=== PATIENT | male | born 1970 | race Two or more races ===

== ENCOUNTER 2020-11-29 13:34 | Outpatient (REF) | payer BC, SELFPAY ==
--- NOTE | ~2020-11-29 | XR_ITS ---
EXAMINATION: XR SHOULDER, RIGHT CLINICAL INFORMATION: Shoulder pain. COMPARISON: None TECHNIQUE: Four views of the right shoulder. FINDINGS: [id number] glenohumeral joint arthritis. Mild AC joint arthritis. No fracture or dislocation. No abnormal soft tissue calcification. XR/XR shoulder RT min 2V IMPRESSION: [id number] glenohumeral joint arthritis. Mild AC joint arthritis.
== END 2020-11-29 13:35 | disposition home or self-care (01) ==
LOC: HO.HMGCX 13:34
PROVIDERS: PCP Internal Medicine; Visit Provider Internal Medicine
DX: Z00.00 Encounter for general adult medical examination without abnormal findings (principal); M67.911 Unspecified disorder of synovium and tendon, right shoulder; E66.9 Obesity, unspecified; E78.5 Hyperlipidemia, unspecified
CPT/HCPCS: 73030

== ENCOUNTER → 2020-12-11 13:53 | Outpatient (BNVA) | payer BC, SELFPAY | PROVIDERS: PCP Internal Medicine; Visit Provider Orthopaedic Surgery | DX: M75.41 Impingement syndrome of right shoulder (principal) | CPT/HCPCS: 20610; J1040 ==

== ENCOUNTER 2022-02-11 15:42 | Outpatient (REF) | payer BC, SELFPAY ==
--- NOTE | ~2022-02-11 | XR_ITS ---
EXAMINATION: XR CHEST CLINICAL INFORMATION: R05.9 - Cough, unspecified COMPARISON: Chest radiograph 09/10/2017 TECHNIQUE: 2 views of the chest were obtained. FINDINGS: There is subtle groundglass attenuation left mid to lower zone suspicious for early infiltrate. There is no confluent lobar or segmental airspace consolidation or effusion. The heart is normal in size. The hilar and mediastinal contours and bony structures are unremarkable. XR/XR chest 2V IMPRESSION: Suspect early infiltrate left mid and lower zone. No effusion.
[2022-02-12 12:37] LABS: Influenza A PCR NEGATIVE (Negative); Influenza B PCR NEGATIVE (Negative); Resp Syncy Virus RNA Qual PCR NEGATIVE (Negative); SARS COV2 PCR INHOUSE NEGATIVE (Negative)
== END 2022-02-11 15:43 | disposition home or self-care (01) ==
LOC: HO.XRAY 15:42
PROVIDERS: PCP Internal Medicine; Visit Provider Family Medicine
DX: Z20.822 Contact with and (suspected) exposure to COVID-19 (principal); R05.9 Cough, unspecified; R09.89 Other specified symptoms and signs involving the circulatory and respiratory systems; B34.9 Viral infection, unspecified
CPT/HCPCS: 0241U; 71046

== ENCOUNTER 2022-06-18 16:49 | Outpatient (REF) | payer BC, SELFPAY ==
[2022-06-18 17:09] LABS: MANUAL DIFF FLAG NO
[2022-06-18 17:55] LABS: Basophils Absolute Auto 0.1 X10*3/uL (0.0-0.2); Basophils Percent Auto 0.4 % (0-2); Eosinophils Absolute Auto 0.2 X10*3/uL (0.0-0.4); Eosinophils Percent Auto 1.5 % (0-4); Imm Gran Abs Auto 0.08 X10*3/uL (0.00-0.03); Imm Gran Pct Auto 0.5 % (0.0-0.4); Lymphocytes Absolute Auto 4.7 X10*3/uL (1.2-4.9); Lymphocytes Percent Auto 29.2 % (20-40); Mean Corpuscular HGB Conc 32.6 g/dl (31.0-36.0); Mean Corpuscular Hemoglobin 28.5 pg (27.0-33.0); Mean Corpuscular Volume 87.4 fL (80.0-98.0); Mean Platelet Volume 11.6 fL (9.4-12.4); Monocytes Absolute Auto 1.3 X10*3/uL (0.1-1.2); Monocytes Percent Auto 7.8 % (2-11); Neutrophils Absolute Auto 9.7 x10*3/uL (2.0-8.3); Neutrophils Percent Auto 60.6 % (45-73); Platelet Count 288 X10*3/uL (160-400); Red Blood Count 4.92 X10*6/uL (4.60-5.80); Red Cell Distribution Width 12.9 % (11.0-16.0)
[2022-06-18 18:21] LABS: Alanine Aminotransferase 51 U/L (0-40); Albumin Level 4.3 g/dL (3.5-5.0); Alkaline Phosphatase 86 U/L (39-117); Anion Gap 15 (12-20); Aspartate Amino Transferase 34 U/L (5-37); Bilirubin Total 0.3 mg/dL (0.0-1.0); Blood Urea Nitrogen 19 mg/dL (9-16); Calcium 9.6 mg/dL (8.4-10.2); Carbon Dioxide 24 mmol/L (22-29); Chloride 107 mmol/L (96-108); Estimated Glomerular Filt Rate 57; Glucose Random 89 mg/dL (60-115); Sodium 142 mmol/L (135-145); Total Protein 7.5 g/dL (6.5-8.0)
== END 2022-06-18 16:50 | disposition home or self-care (01) ==
LOC: HO.LAB 16:49
PROVIDERS: PCP Internal Medicine; Visit Provider Nurse Practitioner
DX: Z01.818 Encounter for other preprocedural examination (principal)
CPT/HCPCS: 36415; 80053; 85025

== ENCOUNTER 2022-11-28 08:01 | Day surgery (SDC) | payer BC, SELFPAY ==
--- NOTE | 2022-11-28 08:20 | HO.ANESPROP2 ---
HPI - Anesthesia Eval Consult details Narrative: 52 yr old male obese , smoker for colon screen PMFSH Active Problems Active Problems: All Active Problems (Updated 06/18/22 @ 17:01 by JUAN RAMON Pepper) Morbid obesity (Acute) Pre-op examination (Acute) Coughing up blood (Acute) Abnormal lung sounds (Acute) Cough (Acute) Viral illness (Acute) Rotator cuff impingement syndrome of right shoulder (Acute) Annual physical exam (Acute) Obesity (Acute) Hyperlipidemia (Acute) Tendinopathy of right shoulder (Acute) Watering of eye (Acute) Past Medical History Medical History Annual physical exam CVA (cerebral vascular accident) Hyperlipidemia Obesity Tendinopathy of right shoulder Watering of eye Family History Family History Father No problems noted. Mother HTN (hypertension) Family history of problems with anesthesia: No Surgical History Surgical History History of appendectomy History of Problems with Anesthesia: No Social History Social History Housing: Apartment Alcohol intake: current Alcohol intake frequency: a few times a month Patient Tobacco Use Status: Current everyday Tobacco user Tobacco use type: Cigarette Cigarettes Per Day: 5 e-Cigarette/Vaping Use: Never Used Advance Directives: No Advance Directives Information Provided: Yes Current occupational status: employed Cognitive needs: No Hearing needs: No Vision needs: No Meds Allergies Allergy/AdvReac Type Severity Reaction Status Date / Time No Known Allergies Allergy Verified 11/26/22 15:46 Exam Exam Date and Time: November 28, 2022 0820 Airway Mallampati Class: II TM Dist: >3cm Neck ROM: Full Heart: rrr Lungs: cta Assessment and Plan Assessment Anesthesia Assessment: Anesthesia Plan Discussed and Chart Reviewed Final Anesthetic Review Family History of Problems with Anesthesia: No History of Problems with Anesthesia: No NPO: Yes ASA Class: III Final Preanesthetic Review: No Changes in Pt Med Stat, Meds/Allgs Chart Reviewed, Consent Obtained/Reviewed and Anes Risks/Benef Reviewed Patient Risk: Intermediate Procedure Risk: Low Anesthetic Plan Anesthetic Plan: MAC: Disposition: Standard PACU
[2022-11-28 08:26] VITALS: BMI 48.5
[2022-11-28 08:47] VITALS: BP 157/86; PULSE 61; RESP 18; TEMP 36.4; O2SAT 97
--- NOTE | 2022-11-28 08:52 | MHC.SHP ---
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 Right shoulder tendinopathy Knee OA) History of Previous Operations: Relevant previous surgery/procedure and date(s) ( status post appendectomy) Allergies: Allergies Allergy/AdvReac Type Severity Reaction Status Date / Time No Known Allergies Allergy Verified 11/26/22 15:46 Review of Systems Sugical H&P ROS: Negative: Constitution, Cardiovascular, Respiratory and Gastrointestinal Exam Surgical H&P Exam: Normal: Heart, Normal: Lungs, Normal: Extremities and Normal: Abdomen Plan Diagnosis/Plan: Unchanged I have reviewed the history and physical and performed a pertinent physical examination on my patient. No changes have occurred unless specified. Time Spent With Patient Time: Total time managing care of this patient today ____ minutes.
--- NOTE | 2022-11-28 09:31 | PM.OP ---
Brief Operative Note Date of Service: 11/28/22 Pre-op diagnosis: Colon cancer screening Post-op diagnosis: other (Colon polyp, diverticulosis, hemorrhoids) Procedure: COLONOSCOPY TILL CECUM WITH BIOPSIES Surgeon: Luis Miguel Novak MD Anesthesia: MAC Was an Geothermal Sheet Metal Worker used for this Procedure?: Yes Geothermal Sheet Metal Worker: Tr Pineda Estimated blood loss (mL): 0 Pathology: other (A. Rectal polyp) Condition: stable Disposition: PACU
[2022-11-28 09:32] VITALS: BP 112/65; PULSE 84; RESP 20; TEMP 37.3; O2SAT 98
--- NOTE | 2022-11-28 09:32 | W.PM.OPN ---
Operative Note Operative Note Date of Service: 11/28/22 Narrative: Pre-op diagnosis: Colon cancer screening Post-op diagnosis:?other (Colon polyp, diverticulosis, hemorrhoids) Surgeon: Luis Miguel Novak MD Anesthesia:?MAC COLONOSCOPY TILL CECUM WITH BIOPSIES Consent: Indications for the procedure and potential complications of bleeding, perforation, reaction to medications and missed diagnosis were discussed with the patient and informed consent was obtained. Instrument: Olympus PCF H 190 L variable stiffness pediatric colonoscope Monitoring: Vital signs and clinical assessment, intermittent blood pressure monitoring, continuous EKG monitoring, Pulse oximetry and Carbon Dioxide monitoring were done throughout the procedure. Colon withdrawl time was 15 minutes. Procedure: The patient was placed in the left lateral decubitis position and pre-procedure medications were administered. After a digital rectal examination of the ano-rectum, the video colonoscope was inserted into the rectum and advanced through the colon to the cecum. The colonoscope was slowly withdrawn in a retrograde panoramic fashion and the colon mucosa was carefully examined including a retroflexed view of the rectum. Findings and interventions are described below. Procedure Difficulty: Without difficulty Findings: Terminal Ileum: Not evaluated Cecum: Normal Ascending Colon: Normal Transverse Colon: Normal Descending Colon: Normal Sigmoid Colon: Moderate diverticulosis Rectum: A 4-5 mm diminutive appearing polyp - removed with a cold bx Ano-rectum: Moderate internal hemorrhoids Colon preparation: Good after some irrigation Impression and Post Procedure Diagnosis: Colonoscopy Findings: One small polyp removed Moderate diverticulosis seen in the sigmoid colon Moderate hemorrhoids on retroflexed exam. Plan: Await pathology results Patient has an appointment on 12/12/22 in the [facility] with Savanah Avery NP. Repeat Colonoscopy interval based on path results - in 5 years if polyps are adenomatous and 10 years if polyps are hyperplastic. Above findings were reviewed with the patient and colon polyps and diverticulosis handouts were given in the discharge area
[2022-11-28 09:47] VITALS: BP 174/86; PULSE 75; RESP 22; TEMP 36.9; O2SAT 97
== END 2022-11-28 10:36 | disposition home or self-care (01) ==
PROVIDERS: PCP Internal Medicine; Visit Provider Internal Medicine Gastroenterology
PROC: 0DJD8ZZ Inspection of Lower Intestinal Tract, Via Natural or Artificial Opening Endoscopic (ICD-10-PCS; CPT 45378; principal; 2022-11-28 09:20)
DX: Z12.11 Encounter for screening for malignant neoplasm of colon (principal); K62.1 Rectal polyp; K57.30 Diverticulosis of large intestine without perforation or abscess without bleeding; K64.8 Other hemorrhoids; I69.920 Aphasia following unspecified cerebrovascular disease; I69.954 Hemiplegia and hemiparesis following unspecified cerebrovascular disease affecting left non-dominant side; E78.00 Pure hypercholesterolemia, unspecified; E66.01 Morbid (severe) obesity due to excess calories; Z68.42 Body mass index [BMI] 45.0-49.9, adult; Z79.82 Long term (current) use of aspirin; Z79.899 Other long term (current) drug therapy; F17.210 Nicotine dependence, cigarettes, uncomplicated
CPT/HCPCS: 45380; 88305

== ENCOUNTER → 2023-01-07 16:03 | Outpatient (BNVA) | payer BC, SELFPAY | PROVIDERS: PCP Internal Medicine; Visit Provider Nurse Practitioner | DX: Z13.89 Encounter for screening for other disorder (principal) ==

== ENCOUNTER 2023-04-13 13:00 | Outpatient (AMB) | payer BC, SELFPAY ==
[2023-04-13 13:03] VITALS: BP 150/82; PULSE 82; O2SAT 97; BMI 49.2
--- NOTE | 2023-04-13 13:03 | MHC.PC.OV ---
Vital Signs 04/13/23 13:03 Height 5 ft 7 in Weight 314 lb BMI 49.2 BP 150/82 H Blood Pressure Location Lt brachial Position Sitting Pulse 82 Pulse Source Pulse Oximeter Pulse Oximetry (%) 97 Oxygen Delivery Method Room Air Intake Visit Reasons: Annual PE Intake Note: Pt is here today for a PE. Allergies No Known Allergies Allergy (Verified 04/13/23 13:03) Medication List - Last Reconciled 04/13/23 by Vanessa Fleming MD aspirin 81 mg PO DAILY atorvastatin 80 mg PO DAILY Tobacco use date assessed: 04/13/23 Dental Screening Dental Screen Date: 04/13/23 Did you have a dental visit in the last 12 months?: No Did you have a dental problem in the last 6 months where you did not have access to dental care?: No Was dental information given to patient?: Patient declined HPI Annual PE HPI Details Pt presents for PE. [facility] Medical History (Updated 04/13/23 @ 13:25 by Vanessa Fleming MD) Annual physical exam CVA (cerebral vascular accident) Hyperlipidemia Obesity Tendinopathy of right shoulder Watering of eye Surgical History (Updated 04/13/23 @ 13:33 by Vanessa Fleming MD) H/O colonoscopy History of appendectomy Family History Father No problems noted. Mother HTN (hypertension) Social History Housing: Apartment Alcohol intake: current Alcohol intake frequency: a few times a month Patient Tobacco Use Status: Current everyday Tobacco user Tobacco use type: Cigarette Cigarettes Per Day: 4 Years Smoked: 35 Packs per year/per ci.00 e-Cigarette/Vaping Use: Never Used Current occupational status: employed Cognitive needs: No Hearing needs: No Vision needs: No Questionnaire PHQ-9 Over the last 2 weeks, how often have you been bothered by any of the following problems? 1. Little interest or pleasure in doing things: several days 2. Feeling down, depressed, or hopeless: nearly every day 3. Trouble falling or staying asleep, or sleeping too much: not at all 4. Feeling tired or having little energy: not at all 5. Poor appetite or overeating: not at all 6. Feeling bad about yourself - or that you are a failure or have let yourself or your family down: not at all 7. Trouble concentrating on things, such as reading the newspaper or watching television: not at all 8. Moving or speaking so slowly that other people could have noticed. Or the opposite - being so fidgety or restless that you have been moving around a lot more than usual: not at all 9. Thoughts that you would be better off or of hurting yourself in some way: not at all Total score: 4 Depression Screening Interpretation: Negative Source: Developed by Drs. Tr Nelson, Martha Larios, Pete Lamb and colleagues, with an educational johnathan from [employer]. Thrive Questionnaire Date Thrive assessed: 04/13/23 I am a: Patient What is your living situation today?: I have a steady place to live Within the past 12 months, did the food you bought not last and you didn't have the money to get more?: Never true Within the past 12 months, did you worry whether your food would run out before you got money to buy more?: Never true Do you have trouble paying for medicines?: No Do you have trouble getting transportation to medical appointments?: No Do you have trouble paying your heating and electricity bill?: No Do you have trouble taking care of your child, family member or friend?: No Do you have trouble with day-to-day activities such as bathing, preparing meals, shopping, managing finances, etc.?: No Are you currently unemployed and looking for a job?: No Are you interested in more education?: No Please select the resources that you would like help with: None Currently or been in a relationship where the following occur: no concerns reported AUDIT C Alcohol Use Questionnaire (AUDIT-C) 1. How often do you have a drink containing alcohol?: 2-4 times a month 2. How many drinks containing alcohol do you have on a typical day when you are drinking?: 5 or 6 3. How often do you have six or more drinks on one occasion?: Never Total Score: 4 ROBINSON-7 AMB Questionnaire ROBINSON-7 Date ROBINSON - 7 assessed: 04/13/23 Feeling nervous, anxious, or on edge: 0 = Not at all Not being able to stop or control worryin = Not at all Worrying too much about different things: 0 = Not at all Trouble relaxin = Not at all Being so restless that it is hard to sit still: 0 = Not at all Becoming easily annoyed or irritable: 0 = Not at all Feeling afraid as if something awful might happen: 0 = Not at all Total ROBINSON-7 score (0-4 normal; 5-9 mild; 10-14 moderate; 15-21 severe): 0 Source: Developed by Drs. Tr Nelson, Martha Larios, Pete Lamb and colleagues, with an educational johnathan from [employer]. Review of Systems Const All systems reviewed & are unremarkable except as noted in HPI and below Reports no additional complaints Eyes Reports no additional complaints ENT Reports no additional complaints Card Reports no additional complaints Resp Reports no additional complaints GI Reports no additional complaints Reports no additional complaints Physical exam (Primary Care) Vital Signs: Last Vital Signs Pulse 82 04/13/23 13:03 BP 150/82 H 04/13/23 13:03 Pulse Ox 97 04/13/23 13:03 Oxygen Delivery Method Room Air 04/13/23 13:03 BMI result Body Mass Index 49.2 Tobacco/Smoking Status: Tobacco use Status Tobacco use date assessed 04/13/23 04/13/23 13:10 Patient Tobacco Use Status Current everyday Tobacco 04/13/23 13:10 Tobacco use type Cigarette 04/13/23 13:10 e-Cigarette/Vaping Use Never Used 04/13/23 13:10 PHQ-9: PHQ-9 Score PHQ-9: Total score 4 04/13/23 13:10 Depression Screening Interpretation: Negative Thrive Assessment: Date of Thrive Assessment Date Thrive assessed 04/13/23 04/13/23 13:10 Currently or been in a relationship where the following occur: no concerns reported Const General: no acute distress HENMT Head: Yes normal to inspection Ears: hearing grossly normal bilaterally Face and sinus: Yes normal facial exam Mouth: Normal oral and palatal mucosa present Throat: Yes posterior oropharynx normal Eyes General: appearance normal, both eyes and all related structures Neck Neck: Yes no lymphadenopathy and Yes supple Resp Effort & Inspection: normal respiratory effort Auscultation: clear to auscultation bilaterally Cardio Rhythm: regular rhythm Heart sounds: S1 normal heart sound present and S2 normal heart sound present GI Inspection: Yes normal to inspection Palpation (GI): Soft to palpation Percussion: Yes normal to percussion Auscultation: normal bowel sounds Assessment and Plan Assessment & Plan (1) H/O colonoscopy: Comment: 11/27, hyperplastic polyp, recheck in 10 years Code(s): Z98.890 - Other specified postprocedural states (2) Blurred vision, bilateral: Code(s): H53.8 - Other visual disturbances (3) HTN (hypertension): Code(s): I10 - Essential (primary) hypertension Plan: Start 20 mg of olmesartan, low sodium diet increase exercise weight loss discussed with patient follow-up in 6 weeks (4) Hyperlipidemia: Code(s): E78.5 - Hyperlipidemia, unspecified Plan: Continue atorvastatin patient will return for fasting labs (5) Annual physical exam: Code(s): Z00.00 - Encounter for general adult medical examination without abnormal findings Plan: Well-balanced diet regular exercise weight loss discussed with patient (6) Obesity: Code(s): E66.9 - Obesity, unspecified Orders: Orders Lipid Panel Today E78.5 - Hyperlipidemia, unspecified, I10 - Essential (primary) hypertension, Z00.00 - Encounter for general adult medical examination without abnormal findings PSA,Total (Free>4and<10) Today E78.5 - Hyperlipidemia, unspecified, I10 - Essential (primary) hypertension, Z00.00 - Encounter for general adult medical examination without abnormal findings Referrals Ophthalmology Referral H53.8 - Other visual disturbances Medications: New olmesartan 20 mg PO DAILY 90 tabs 0RF Refilled atorvastatin 80 mg PO DAILY 90 tabs 3RF aspirin 81 mg PO DAILY 90 tabs 3RF Coding Level of Care Code Est Pt Prev Care 40-64y(21129) Diagnoses H/O colonoscopy Z98.890 Blurred vision, bilateral H53.8 HTN (hypertension) I10 Hyperlipidemia E78.5 Annual physical exam Z00.00 Obesity E66.9
== END 2023-04-13 13:36 | disposition home or self-care (01) ==
PROVIDERS: Visit Provider Internal Medicine
DX: Z00.00 Encounter for general adult medical examination without abnormal findings (principal); Z98.890 Other specified postprocedural states; E66.9 Obesity, unspecified; Z68.42 Body mass index [BMI] 45.0-49.9, adult; I10 Essential (primary) hypertension; H53.8 Other visual disturbances; E78.5 Hyperlipidemia, unspecified
CPT/HCPCS: 99396

== ENCOUNTER 2023-05-02 10:16 | Outpatient (REF) | payer BC, SELFPAY ==
[2023-05-02 11:57] LABS: Cholesterol 103 mg/dL; HDL Cholesterol 26 mg/dL; LDL Cholesterol Calculated 68 mg/dl; Triglycerides 47 mg/dL
[2023-05-02 12:18] LABS: PSA,Total (Free>4and<10) 0.78 ng/mL (0.00-4.00)
== END 2023-05-02 10:17 | disposition home or self-care (01) ==
LOC: HO.HMGCLDS 10:16
PROVIDERS: PCP Internal Medicine; Visit Provider Internal Medicine
DX: Z00.00 Encounter for general adult medical examination without abnormal findings (principal); E78.5 Hyperlipidemia, unspecified; I10 Essential (primary) hypertension; Z12.5 Encounter for screening for malignant neoplasm of prostate
CPT/HCPCS: 36415; 80061; 84153

== ENCOUNTER 2023-05-19 10:11 | Outpatient (AMB) | payer BC, SELFPAY ==
--- NOTE | 2023-05-19 10:19 | A.OFFPC_ITS ---
Vital Signs 05/19/23 10:23 Height 5 ft 7 in Weight 315 lb BMI 49.3 BP 142/78 H Blood Pressure Location Lt brachial Position Sitting Pulse 71 Pulse Source Pulse Oximeter Pulse Oximetry (%) 97 Oxygen Delivery Method Room Air Intake Visit Reasons: 6 week Follow up HTN Intake Note: Pt is here today for 6 weeks follow up visit on HTN. Allergies No Known Allergies Allergy (Verified 05/19/23 10:25) Medication List - Last Reconciled 05/19/23 by Vanessa Fleming MD aspirin 81 mg PO DAILY atorvastatin 80 mg PO DAILY olmesartan 20 mg PO DAILY Tobacco use date assessed: 04/13/23 Dental Screening Dental Screen Date: 05/19/23 Did you have a dental visit in the last 12 months?: Yes Did you have a dental problem in the last 6 months where you did not have access to dental care?: No Was dental information given to patient?: Patient has dentist HPI 6 week Follow up HTN HPI Details Patient presents for the follow-up on hypertension and hyperlipidemia. [facility] Medical History (Updated 05/19/23 @ 10:58 by Vanessa Fleming MD) Annual physical exam CVA (cerebral vascular accident) Hyperlipidemia Obesity Tendinopathy of right shoulder Watering of eye Surgical History H/O colonoscopy History of appendectomy Family History Father No problems noted. Mother HTN (hypertension) Social History Housing: Apartment Alcohol intake: current Alcohol intake frequency: a few times a month Patient Tobacco Use Status: Current everyday Tobacco user Tobacco use type: Cigarette Cigarettes Per Day: 4 Years Smoked: 35 e-Cigarette/Vaping Use: Never Used Current occupational status: employed Cognitive needs: No Hearing needs: No Vision needs: No Questionnaire Thrive Questionnaire Date Thrive assessed: 04/13/23 ROBINSON-7 AMB Questionnaire ROBINSON-7 Date ROBINSON - 7 assessed: 04/13/23 Source: Developed by Drs. Tr Nelson, Martha Larios, Pete Lamb and colleagues, with an educational johnathan from [employer]. Review of Systems Const All systems reviewed & are unremarkable except as noted in HPI and below Reports no additional complaints Eyes Reports no additional complaints ENT Reports no additional complaints Card Reports no additional complaints Resp Reports no additional complaints GI Reports no additional complaints Reports no additional complaints Physical exam (Primary Care) Vital Signs: Last Vital Signs Pulse 71 05/19/23 10:23 BP 142/78 H 05/19/23 10:23 Pulse Ox 97 05/19/23 10:23 Oxygen Delivery Method Room Air 05/19/23 10:23 BMI result Body Mass Index 49.3 Tobacco/Smoking Status: Tobacco use Status Tobacco use date assessed 04/13/23 05/19/23 10:20 Patient Tobacco Use Status Current everyday Tobacco 05/19/23 10:20 Tobacco use type Cigarette 05/19/23 10:20 e-Cigarette/Vaping Use Never Used 05/19/23 10:20 Thrive Assessment: Date of Thrive Assessment Date Thrive assessed 04/13/23 05/19/23 10:20 Const General: no acute distress HENMT Head: Yes normal to inspection Eyes General: appearance normal, both eyes and all related structures Neck Neck: Yes supple Resp Effort & Inspection: normal respiratory effort Auscultation: clear to auscultation bilaterally Cardio Rhythm: regular rhythm Heart sounds: S1 normal heart sound present and S2 normal heart sound present Assessment and Plan Assessment & Plan (1) HTN (hypertension): Code(s): I10 - Essential (primary) hypertension Plan: Increase olmesartan to 40 mg a day, check comprehensive panel in 1 week. Increase physical activity and weight loss discussed with the patient (2) Hyperlipidemia: Comment: high dose of statin for history of CVA Code(s): E78.5 - Hyperlipidemia, unspecified Plan: Continue atorvastatin (3) Obesity: Code(s): E66.9 - Obesity, unspecified Plan: Weight loss discussed with the patient (4) Tobacco use: Comment: 10/06 PPD Code(s): Z72.0 - Tobacco use Plan: TOBACCO QUITTING DISCUSSED WITH THE PATIENT, FOLLOW-UP IN 2 MONTHS Orders: Orders Comprehensive [place]. Panel Fast 1 Week I10 - Essential (primary) hypertension Medications: New olmesartan 40 mg PO DAILY 90 tabs 1RF Coding Level of Care Code Est Pt Level 3 (46019) Diagnoses HTN (hypertension) I10 Hyperlipidemia E78.5 Obesity E66.9 Tobacco use Z72.0
[2023-05-19 10:23] VITALS: BP 142/78; PULSE 71; O2SAT 97; BMI 49.3
== END 2023-05-19 11:00 | disposition home or self-care (01) ==
PROVIDERS: PCP Internal Medicine; Visit Provider Internal Medicine
DX: I10 Essential (primary) hypertension (principal); E78.5 Hyperlipidemia, unspecified; E66.9 Obesity, unspecified; Z68.42 Body mass index [BMI] 45.0-49.9, adult; Z72.0 Tobacco use
CPT/HCPCS: 99213

== ENCOUNTER 2023-09-23 10:39 | Outpatient (REF) | payer BC, SELFPAY ==
[2023-09-23 13:57] LABS: Alanine Aminotransferase 55 U/L (0-40); Albumin Level 4.2 g/dL (3.5-5.0); Alkaline Phosphatase 92 U/L (39-117); Anion Gap 12 (12-20); Aspartate Amino Transferase 40 U/L (5-37); Bilirubin Total 0.4 mg/dL (0.0-1.0); Blood Urea Nitrogen 9 mg/dL (9-16); Calcium 9.6 mg/dL (8.4-10.2); Carbon Dioxide 26 mmol/L (22-29); Chloride 102 mmol/L (96-108); Estimated Glomerular Filt Rate > 60; Glucose Fasting 329 mg/dL (60-99); Potassium 4.3 mmol/L (3.3-5.1); Sodium 136 mmol/L (135-145)
== END 2023-09-23 10:40 | disposition home or self-care (01) ==
LOC: HO.HMGCLDS 10:39
PROVIDERS: PCP Internal Medicine; Visit Provider Internal Medicine
DX: I10 Essential (primary) hypertension (principal)
CPT/HCPCS: 36415; 80053

== ENCOUNTER 2023-09-23 12:05 | Outpatient (AMB) | payer BC, SELFPAY ==
--- NOTE | 2023-09-23 13:15 | A.OFFPC_ITS ---
Vital Signs 09/23/23 13:16 Height 5 ft 7 in Weight 290 lb BMI 45.4 BP 126/74 Blood Pressure Location Lt brachial Position Sitting Pulse 75 Pulse Source Pulse Oximeter Pulse Oximetry (%) 96 Oxygen Delivery Method Room Air Intake Visit Reasons: 2 month follow up/Oct appt CX Intake Note: Pt is here today for 2 months follow up visit. Allergies No Known Allergies Allergy (Verified 05/19/23 10:25) Medication List - Last Reconciled 09/23/23 by Vanessa Fleming MD aspirin 81 mg PO DAILY atorvastatin 80 mg PO DAILY olmesartan 40 mg PO DAILY Tobacco use date assessed: 09/23/23 HPI 2 month follow up/Oct appt CX HPI Details Patient presents for the follow-up on hypertension hyperlipidemia stable on current medications. [facility] Medical History Annual physical exam Obesity Hyperlipidemia Tendinopathy of right shoulder Watering of eye CVA (cerebral vascular accident) Surgical History H/O colonoscopy History of appendectomy Family History Father No problems noted. Mother HTN (hypertension) Social History Housing: Apartment Alcohol intake: current Alcohol intake frequency: a few times a month Patient Tobacco Use Status: Current everyday Tobacco user Tobacco use type: Cigarette Cigarettes Per Day: 12 Years Smoked: 35 e-Cigarette/Vaping Use: Never Used Current occupational status: employed Cognitive needs: No Hearing needs: No Vision needs: No Questionnaire Thrive Questionnaire Date Thrive assessed: 04/13/23 ROBINSON-7 AMB Questionnaire ROBINSON-7 Date ROBINSON - 7 assessed: 04/13/23 Source: Developed by Drs. Tr Nelson, Martha Larios, Pete Lamb and colleagues, with an educational johnathan from [employer]. Review of Systems Const All systems reviewed & are unremarkable except as noted in HPI and below Reports no additional complaints Eyes Reports no additional complaints ENT Reports no additional complaints Card Reports no additional complaints Resp Reports no additional complaints GI Reports no additional complaints Reports no additional complaints Physical exam (Primary Care) Vital Signs: Last Vital Signs Pulse 75 09/23/23 13:16 BP 126/74 09/23/23 13:16 Pulse Ox 96 09/23/23 13:16 Oxygen Delivery Method Room Air 09/23/23 13:16 BMI result Body Mass Index 45.4 Tobacco/Smoking Status: Tobacco use Status Tobacco use date assessed 09/23/23 09/23/23 13:20 Patient Tobacco Use Status Current everyday Tobacco 09/23/23 13:20 Tobacco use type Cigarette 09/23/23 13:20 e-Cigarette/Vaping Use Never Used 09/23/23 13:20 Thrive Assessment: Date of Thrive Assessment Date Thrive assessed 04/13/23 09/23/23 13:20 Const General: no acute distress HENMT Head: Yes normal to inspection Ears: hearing grossly normal bilaterally Throat: Yes posterior oropharynx normal Neck Neck: Yes supple Resp Effort & Inspection: normal respiratory effort Auscultation: clear to auscultation bilaterally Cardio Rhythm: regular rhythm Heart sounds: S1 normal heart sound present and S2 normal heart sound present GI Inspection: Yes normal to inspection Palpation (GI): Soft to palpation Percussion: Yes normal to percussion Auscultation: normal bowel sounds Assessment and Plan Assessment & Plan (1) Tobacco use: Comment: 10/06 PPD Code(s): Z72.0 - Tobacco use Plan: Tobacco quitting discussed with the patient (2) HTN (hypertension): Code(s): I10 - Essential (primary) hypertension Plan: Continue Olmesartan (3) Hyperlipidemia: Comment: high dose of statin for history of CVA Code(s): E78.5 - Hyperlipidemia, unspecified Plan: cont statin (4) Morbid obesity: Code(s): E66.01 - Morbid (severe) obesity due to excess calories Plan: Weight loss discussed with the patient, he declined referral to weight management program (5) Annual physical exam: Code(s): Z00.00 - Encounter for general adult medical examination without abnormal findings Orders: Orders PSA,Total (Free>4and<10) 7 Months E78.5 - Hyperlipidemia, unspecified, I10 - Essential (primary) hypertension, Z00.00 - Encounter for general adult medical examination without abnormal findings Comprehensive [place]. Panel Fast 7 Months E78.5 - Hyperlipidemia, unspecified, I10 - Essential (primary) hypertension, Z00.00 - Encounter for general adult medical examination without abnormal findings Lipid Panel 7 Months E78.5 - Hyperlipidemia, unspecified, I10 - Essential (primary) hypertension, Z00.00 - Encounter for general adult medical examination without abnormal findings Complete Blood Count no Diff 7 Months E78.5 - Hyperlipidemia, unspecified, I10 - Essential (primary) hypertension, Z00.00 - Encounter for general adult medical examination without abnormal findings UA w Microscopic 7 Months E78.5 - Hyperlipidemia, unspecified, I10 - Essential (primary) hypertension, Z00.00 - Encounter for general adult medical examination without abnormal findings Coding Level of Care Code Est Pt Level 3 (37970) Diagnoses Tobacco use Z72.0 HTN (hypertension) I10 Hyperlipidemia E78.5 Morbid obesity E66.01 Annual physical exam Z00.00
[2023-09-23 13:16] VITALS: BP 126/74; PULSE 75; O2SAT 96; BMI 45.4
== END 2023-09-23 15:39 | disposition home or self-care (01) ==
PROVIDERS: PCP Internal Medicine; Visit Provider Internal Medicine
DX: I10 Essential (primary) hypertension (principal); E66.01 Morbid (severe) obesity due to excess calories; Z68.42 Body mass index [BMI] 45.0-49.9, adult; Z72.0 Tobacco use; E78.5 Hyperlipidemia, unspecified
CPT/HCPCS: 99213

== ENCOUNTER 2024-04-14 11:25 | Outpatient (AMB) | payer BC, SELFPAY ==
[2024-04-14 11:45] VITALS: BP 114/68; PULSE 81; O2SAT 96; BMI 47.0
--- NOTE | 2024-04-14 11:45 | A.OFFPC_ITS ---
Vital Signs 04/14/24 11:45 Height 5 ft 7 in Weight 300 lb BMI 47.0 BP 114/68 Blood Pressure Location Rt brachial Position Sitting Pulse 81 Pulse Source Pulse Oximeter Pulse Oximetry (%) 96 Oxygen Delivery Method Room Air Intake Visit Reasons: Annual PE Intake Note: Pt is here today for PE. Allergies No Known Allergies Allergy (Verified 04/14/24 11:45) Medication List - Last Reconciled 04/14/24 by Vanessa Fleming MD aspirin 81 mg PO DAILY atorvastatin 80 mg PO DAILY olmesartan 40 mg PO DAILY Tobacco use date assessed: 04/14/24 Dental Screening Dental Screen Date: 04/14/24 Did you have a dental visit in the last 12 months?: No Did you have a dental problem in the last 6 months where you did not have access to dental care?: No Was dental information given to patient?: Patient declined HPI Annual PE HPI Details Pt presents for PE. Patient has been trying to lose weight decreasing caloric intake and exercising regularly for at least 6 months. He is interested in trying Wegovy to facilitate weight loss [facility] Medical History Annual physical exam Obesity Hyperlipidemia Tendinopathy of right shoulder Watering of eye CVA (cerebral vascular accident) Surgical History H/O colonoscopy History of appendectomy Family History Father No problems noted. Mother HTN (hypertension) Social History Housing: Apartment Alcohol intake: current Alcohol intake frequency: a few times a month Patient Tobacco Use Status: Current everyday Tobacco user Tobacco use type: Cigarette Cigarettes Per Day: 12 Years Smoked: 35 e-Cigarette/Vaping Use: Never Used service: Yes Current occupational status: employed Cognitive needs: No Hearing needs: No Vision needs: No Questionnaire PHQ-9 Over the last 2 weeks, how often have you been bothered by any of the following problems? 1. Little interest or pleasure in doing things: nearly every day 2. Feeling down, depressed, or hopeless: not at all 3. Trouble falling or staying asleep, or sleeping too much: not at all 4. Feeling tired or having little energy: more than half the days 5. Poor appetite or overeating: not at all 6. Feeling bad about yourself - or that you are a failure or have let yourself or your family down: not at all 7. Trouble concentrating on things, such as reading the newspaper or watching television: not at all 8. Moving or speaking so slowly that other people could have noticed. Or the opposite - being so fidgety or restless that you have been moving around a lot more than usual: not at all 9. Thoughts that you would be better off or of hurting yourself in some way: not at all Total score: 5 Depression Screening Interpretation: Negative Depression Screening Done: Yes Source: Developed by Drs. Tr Nelson, Martha Larios, Pete Lamb and colleagues, with an educational johnathan from [employer]. Thrive Questionnaire Date Thrive assessed: 04/14/24 I am a: Patient What is your living situation today?: I have a steady place to live Within the past 12 months, did the food you bought not last and you didn't have the money to get more?: Sometimes True Within the past 12 months, did you worry whether your food would run out before you got money to buy more?: Sometimes True Do you have trouble paying for medicines?: No Do you have trouble getting transportation to medical appointments?: No Do you have trouble paying your heating and electricity bill?: No Do you have trouble taking care of your child, family member or friend?: No Do you have trouble with day-to-day activities such as bathing, preparing meals, shopping, managing finances, etc.?: No Are you currently unemployed and looking for a job?: No Are you interested in more education?: No Please select the resources that you would like help with: None THRIVE Score: 2 AUDIT C Alcohol Use Questionnaire (AUDIT-C) 1. How often do you have a drink containing alcohol?: 2-4 times a month 2. How many drinks containing alcohol do you have on a typical day when you are drinking?: 1 or 2 3. How often do you have six or more drinks on one occasion?: Never Total Score: 2 ROBINSON-7 AMB Questionnaire ROBINSON-7 Date ROBINSON - 7 assessed: 04/14/24 Feeling nervous, anxious, or on edge: 1 = Several days Not being able to stop or control worryin = Not at all Worrying too much about different things: 0 = Not at all Trouble relaxin = Not at all Being so restless that it is hard to sit still: 0 = Not at all Becoming easily annoyed or irritable: 1 = Several days Feeling afraid as if something awful might happen: 0 = Not at all Total ROBINSON-7 score (0-4 normal; 5-9 mild; 10-14 moderate; 15-21 severe): 2 Source: Developed by Drs. Tr Nelson, Martha Larios, Pete Lamb and colleagues, with an educational johnathan from [employer]. Review of Systems Const All systems reviewed & are unremarkable except as noted in HPI and below Reports no additional complaints Eyes Reports no additional complaints ENT Reports no additional complaints Card Reports no additional complaints Resp Reports no additional complaints GI Reports no additional complaints Reports no additional complaints Physical exam (Primary Care) Vital Signs: Last Vital Signs Pulse 81 04/14/24 11:45 BP 114/68 04/14/24 11:45 Pulse Ox 96 04/14/24 11:45 Oxygen Delivery Method Room Air 04/14/24 11:45 BMI result Body Mass Index 47.0 Tobacco/Smoking Status: Tobacco use Status Tobacco use date assessed 04/14/24 04/14/24 11:45 Patient Tobacco Use Status Current everyday Tobacco 04/14/24 11:45 Tobacco use type Cigarette 04/14/24 11:45 e-Cigarette/Vaping Use Never Used 04/14/24 11:45 Depression Screening Interpretation: Negative Thrive Assessment: Date of Thrive Assessment Date Thrive assessed 04/13/23 04/14/24 11:45 Const General: no acute distress HENMT Head: Yes normal to inspection Ears: hearing grossly normal bilaterally General nose exam: Normal external nose present Throat: Yes posterior oropharynx normal Eyes General: appearance normal, both eyes and all related structures Neck Neck: Yes no lymphadenopathy and Yes supple Resp Effort & Inspection: normal respiratory effort Auscultation: clear to auscultation bilaterally Cardio Rhythm: regular rhythm Heart sounds: S1 normal heart sound present and S2 normal heart sound present GI Inspection: Yes normal to inspection Palpation (GI): Soft to palpation Percussion: Yes normal to percussion Auscultation: normal bowel sounds Extrem General: Yes no clubbing, cyanosis or edema Assessment and Plan Assessment & Plan (1) Morbid obesity: Code(s): E66.01 - Morbid (severe) obesity due to excess calories Plan: Wegovy 0.25 weekly will be started. Patient will follow-up in 1 month after starting the medication to monitor his weight (2) Hyperlipidemia: Comment: high dose of statin for history of CVA Code(s): E78.5 - Hyperlipidemia, unspecified Plan: Continue statin (3) Annual physical exam: Code(s): Z00.00 - Encounter for general adult medical examination without abnormal findings Plan: Well-balanced diet regular exercise weight loss discussed with the patient, he will return for fasting blood work (4) HTN (hypertension): Code(s): I10 - Essential (primary) hypertension Plan: Continue olmesartan Orders: Orders Comprehensive [place]. Panel Fast Today E66.01 - Morbid (severe) obesity due to excess calories, E78.5 - Hyperlipidemia, unspecified, I10 - Essential (primary) hypertension, Z00.00 - Encounter for general adult medical examination without abnormal findings Lipid Panel Today E66.01 - Morbid (severe) obesity due to excess calories, E78.5 - Hyperlipidemia, unspecified, I10 - Essential (primary) hypertension, Z00.00 - Encounter for general adult medical examination without abnormal f indings Hemoglobin A1c Today E66.01 - Morbid (severe) obesity due to excess calories, E78.5 - Hyperlipidemia, unspecified, I10 - Essential (primary) hypertension, Z00.00 - Encounter for general adult medical examination without abnormal findings PSA,Total (Free>4and<10) Today E66.01 - Morbid (severe) obesity due to excess calories, E78.5 - Hyperlipidemia, unspecified, I10 - Essential (primary) hypertension, Z00.00 - Encounter for general adult medical examination without abnormal findings Complete Blood Count Auto Diff Today E66.01 - Morbid (severe) obesity due to excess calories, E78.5 - Hyperlipidemia, unspecified, I10 - Essential (primary) hypertension, Z00.00 - Encounter for general adult medical examination without abnormal findings UA w Microscopic Today E66.01 - Morbid (severe) obesity due to excess calories, E78.5 - Hyperlipidemia, unspecified, I10 - Essential (primary) hypertension, Z00.00 - Encounter for general adult medical examination without abnormal findings Microalbumin, Random (w Creat) Today E66.01 - Morbid (severe) obesity due to excess calories, E78.5 - Hyperlipidemia, unspecified, I10 - Essential (primary) hypertension, Z00.00 - Encounter for general adult medical examination without abnormal findings Medications: New semaglutide (weight loss) ([place]) administer weeks 1 through 4 of therapy 0.25 mg (0.5 mL) subcut QWEEK 2 mL 0RF Refilled atorvastatin 80 mg PO DAILY 90 tabs 3RF olmesartan 40 mg PO DAILY 90 tabs 3RF Coding Level of Care Code Est Pt Prev Care 40-64y(03017) Diagnoses Morbid obesity E66.01 Hyperlipidemia E78.5 Annual physical exam Z00.00 HTN (hypertension) I10
== END 2024-04-14 14:02 | disposition home or self-care (01) ==
PROVIDERS: PCP Internal Medicine; Visit Provider Internal Medicine
DX: Z00.00 Encounter for general adult medical examination without abnormal findings (principal); E66.01 Morbid (severe) obesity due to excess calories; Z68.42 Body mass index [BMI] 45.0-49.9, adult; E78.5 Hyperlipidemia, unspecified; I10 Essential (primary) hypertension
CPT/HCPCS: 99396

== ENCOUNTER 2025-05-15 06:35 | Outpatient (REF) | payer BC, SELFPAY ==
--- OUTSIDE RECORDS SUMMARY | 2025-05-15 06:37 | XMS_ITS | Clinical Summary ---
Author Organization [address] [place] [address] [place] [phone] Phone Care Team Providers Care Special Warfare Operator Name Role Phone Physician, Pcp Unknown Primary Care Provider Keila vailable Social History Tobacco Use Types Packs/Day Years Used Date Smoking Tobacco: Never Assessed Sex and Gender Information Value Date Recorded Sex Assigned at Not on file Legal Sex Male 4:17 AM EST Gender Identity Not on file Sexual Orientation Not on file Plan of Treatment Health Maintenance Due Date Last Done Comments Hepatitis B Vaccines (1 of 3 - 19+ 3-dose series) 1987 Pneumococcal Vaccine: 50+ Years (1 of 1 - PCV) 2018 Zoster Vaccines (1 of 2) 2018 COVID-19 Vaccine (3 - 2023-2 5 season) 2024 03/05/2021, 02/01/2021 Cholesterol Screening (Lipid Panel) 09/10/2024 Colorectal Cancer Screening: Colonoscopy 09/10/2024 HIV Screening 09/10/2024 Hepatitis C Screening 09/10/2024 Social Influencers of Health Screening 09/10/2024 Depression Screening 10/05/2024 Influenza Vaccine (#1) 2025 09/10/2017 DTaP,Tdap,and Td Vaccines (2 - Td or Tdap) 03/16/2029 03/16/2019 HIB Vaccines Aged Out No longer eligi ble based on patient's age to complete this topic HPV Vaccines Aged Out No longer eligi ble based on patient's age to complete this topic Hepatitis A Vaccines Aged Out No long er eligible based on patient's age to complete this topic IPV Vaccines Aged Out No longer eligi ble based on patient's age to complete this topic MMR Vaccines Aged Out No longer eligi ble based on patient's age to complete this topic Meningococcal ACWY Vaccine Aged Out N o longer eligible based on patient's age to complete this topic Meningococcal B Vaccine Aged Out No l onger eligible based on patient's age to complete this topic RSV Immunization Patients Under 20 months Aged Out No longer eligible b ased on patient's age to complete this topic Varicella Vaccines Aged Out No longer eligible based on patient's age to complete this topic Insurance [employer] Care Teams Special Warfare Operator Relationship Specialty Start Date End Date Physician, Pcp Unknown PCP - General 09/09/24
[2025-05-15 10:12] LABS: MANUAL DIFF FLAG NO
[2025-05-15 10:15] LABS: Hematocrit 48.0 % (42.0-52.0); Hemoglobin 15.4 g/dl (14.0-18.0); Imm Gran Abs Auto 0.03 X10*3/uL (0.00-0.03); Imm Gran Pct Auto 0.3 % (0.0-0.4); Lymphocytes Absolute Auto 2.9 X10*3/uL (1.2-4.9); Mean Corpuscular HGB Conc 32.1 g/dl (31.0-36.0); Mean Corpuscular Hemoglobin 28.6 pg (27.0-33.0); Mean Corpuscular Volume 89.1 fL (80.0-98.0); NRBC Abs Auto 0.000 X10*3/uL (0.0-0.012); NRBC Pct Auto 0.0 /100WBC (0.0-0.2); Platelet Count 279 X10*3/uL (160-400); Red Blood Count 5.39 X10*6/uL (4.60-5.80); White Blood Count 9.0 X10*3/uL (4.8-10.8)
[2025-05-15 10:26] LABS: Appearance Urine Clear; Glucose Urine UA >=1000 mg/dL (Negative); PH 5.5 (5.0-9.0); Specific Gravity - Urine >= 1.030 (1.005-1.025); UMIC TRIGGER UA YES
[2025-05-15 10:31] LABS: Alanine Aminotransferase 41 U/L (0-40); Albumin Level 4.3 g/dL (3.5-5.0); Alkaline Phosphatase 72 U/L (39-117); Anion Gap 10 (12-20); Aspartate Amino Transferase 31 U/L (5-37); Blood Urea Nitrogen 11 mg/dL (9-16); Calcium 9.6 mg/dL (8.4-10.2); Carbon Dioxide 29 mmol/L (22-29); Chloride 106 mmol/L (96-108); Cholesterol 119 mg/dL (<200); Estimated Glomerular Filt Rate > 60; HDL Cholesterol 32 mg/dL (>40); Potassium 4.2 mmol/L (3.3-5.1); Sodium 141 mmol/L (135-145); Total Protein 7.5 g/dL (6.5-8.0); Triglycerides 52 mg/dL (<150)
[2025-05-15 10:56] LABS: PSA,Total (Free>4and<10) 1.12 ng/mL (0.00-4.00)
[2025-05-15 11:05] LABS: Microalbum/Creatinine Ratio Ur 6.1 ug/mg cr (<30)
[2025-05-15 12:27] LABS: Hemoglobin A1C 456.2033 umol/L; Total Hemoglobin (HGBA1C) 4086.1892 umol/L
== END 2025-05-15 06:36 | disposition home or self-care (01) ==
LOC: HO.HMGCLDS 06:35
PROVIDERS: PCP Internal Medicine; Visit Provider Internal Medicine
DX: I10 Essential (primary) hypertension (principal); E78.5 Hyperlipidemia, unspecified; E66.9 Obesity, unspecified; R73.9 Hyperglycemia, unspecified; Z12.5 Encounter for screening for malignant neoplasm of prostate
CPT/HCPCS: 36415; 80053; 80061; 81001; 82043; 82570; 83036; 84153; 85025

== ENCOUNTER 2025-06-01 14:02 | Outpatient (AMB) | payer BC, SELFPAY ==
[2025-06-01 14:21] VITALS: BP 130/78; PULSE 76; RESP 18; TEMP 37; O2SAT 96; BMI 43.5
--- NOTE | 2025-06-01 14:21 | MHC.PC.OV ---
Vital Signs 06/01/25 14:21 Height 5 ft 7 in Weight 278 lb BMI 43.5 BP 130/78 Blood Pressure Location Lt brachial Position Sitting Respiration 18 Pulse 76 Pulse Source Pulse Oximeter Temp 98.6 F Temp Source Oral Pulse Oximetry (%) 96 Oxygen Delivery Method Room Air Intake Visit Reasons: PE Intake Note: Pt is here today for PE. Allergies No Known Allergies Allergy (Verified 06/01/25 14:21) Medication List - Last Reconciled 06/01/25 by Vanessa Fleming MD aspirin 81 mg PO DAILY atorvastatin 80 mg PO DAILY blood-glucose meter ([employer] Verio Flex Start kit) As directed lancets ([employer] Delica Plus Lancet) Test blood sugar twice a day metformin ER 750 mg PO BID olmesartan 40 mg PO DAILY OneTouch Verio test strips (blood sugar diagnostic) Test blood sugar twice a day NS Tobacco use date assessed: 06/01/25 Dental Screening Dental Screen Date: 06/01/25 Did you have a dental visit in the last 12 months?: No Was dental information given to patient?: Patient declined HPI PE HPI Details Patient presents for a physical. Blood work results discussed with the patient his newly diagnosed diabetic. Patient denies polyuria polydipsia or any significant weight loss. [facility] Medical History (Updated 06/01/25 @ 16:05 by Vanessa Fleimng MD) DM type 2 (diabetes mellitus, type 2) Morbid obesity Annual physical exam Obesity Hyperlipidemia Tendinopathy of right shoulder Watering of eye CVA (cerebral vascular accident) Surgical History H/O colonoscopy History of appendectomy Family History Father No problems noted. Mother HTN (hypertension) Social History Housing: Apartment Alcohol intake: current Alcohol intake frequency: a few times a month Patient Tobacco Use Status: Current everyday Tobacco user Tobacco use type: Cigarette Cigarettes Per Day: 12 Years Smoked: 35 e-Cigarette/Vaping Use: Never Used service: Yes Current occupational status: employed Cognitive needs: No Hearing needs: No Vision needs: No Questionnaire PHQ-9 Over the last 2 weeks, how often have you been bothered by any of the following problems? 1. Little interest or pleasure in doing things: not at all 2. Feeling down, depressed, or hopeless: not at all 3. Trouble falling or staying asleep, or sleeping too much: not at all 4. Feeling tired or having little energy: more than half the days 5. Poor appetite or overeating: more than half the days 6. Feeling bad about yourself - or that you are a failure or have let yourself or your family down: not at all 7. Trouble concentrating on things, such as reading the newspaper or watching television: not at all 8. Moving or speaking so slowly that other people could have noticed. Or the opposite - being so fidgety or restless that you have been moving around a lot more than usual: not at all 9. Thoughts that you would be better off or of hurting yourself in some way: not at all Total score: 4 Depression Screening Interpretation: Negative Depression Screening Done: Yes [id number] - PHQ-9 Billing: Yes Source: Developed by Drs. Tr Nelson, Martha Larios, Pete Lamb and colleagues, with an educational johnathan from [employer]. Thrive Questionnaire Date Thrive assessed: 06/01/25 I am a: Patient What is your living situation today?: I have a steady place to live Within the past 12 months, did the food you bought not last and you didn't have the money to get more?: Never true Within the past 12 months, did you worry whether your food would run out before you got money to buy more?: Never true Do you have trouble paying for medicines?: No Do you have trouble getting transportation to medical appointments?: No Do you have trouble paying your heating and electricity bill?: No Do you have trouble taking care of your child, family member or friend?: No Do you have trouble with day-to-day activities such as bathing, preparing meals, shopping, managing finances, etc.?: No Are you currently unemployed and looking for a job?: No Are you interested in more education?: No Please select the resources that you would like help with: None Currently or been in a relationship where the following occur: No concerns reported THRIVE Score: 0 AUDIT C Alcohol Use Questionnaire (AUDIT-C) 1. How often do you have a drink containing alcohol?: Never 3. How often do you have six or more drinks on one occasion?: Never Total Score: 0 ROBINSON-7 AMB Questionnaire ROBINSON-7 Date ROBINSON - 7 assessed: 06/01/25 Feeling nervous, anxious, or on edge: 2 = More than half the days Not being able to stop or control worryin = Not at all Worrying too much about different things: 0 = Not at all Trouble relaxin = More than half the days Being so restless that it is hard to sit still: 0 = Not at all Becoming easily annoyed or irritable: 2 = More than half the days Feeling afraid as if something awful might happen: 0 = Not at all Total ROBINSON-7 score (0-4 normal; 5-9 mild; 10-14 moderate; 15-21 severe): 6 Source: Developed by Drs. Tr Nelson, Martha Larios, Pete Lamb and colleagues, with an educational johnathan from [employer]. ROBINSON-7 Assessment Billing ROBINSON-7 Assessment Tool: ROBINSON-7 Assessment 72706 Review of Systems Const All systems reviewed & are unremarkable except as noted in HPI and below Eyes Reports no additional complaints ENT Reports no additional complaints Card Reports no additional complaints Resp Reports no additional complaints GI Reports no additional complaints Reports no additional complaints Musc Reports no additional complaints Physical exam (Primary Care) Vital Signs: Last Vital Signs Temp 98.6 F 06/01/25 14:21 Pulse 76 06/01/25 14:21 Resp 18 06/01/25 14:21 BP 130/78 06/01/25 14:21 Pulse Ox 96 06/01/25 14:21 Oxygen Delivery Method Room Air 06/01/25 14:21 BMI result Body Mass Index 43.5 Tobacco/Smoking Status: Tobacco use Status Tobacco use date assessed 06/01/25 06/01/25 14:28 Patient Tobacco Use Status Current everyday Tobacco 06/01/25 14:28 Tobacco use type Cigarette 06/01/25 14:28 e-Cigarette/Vaping Use Never Used 06/01/25 14:28 PHQ-9: PHQ-9 Score PHQ-9: Total score 4 06/01/25 14:28 Depression Screening Interpretation: Negative Thrive Assessment: Date of Thrive Assessment Date Thrive assessed 06/01/25 06/01/25 14:28 Currently or been in a relationship where the following occur: No concerns reported Const General: no acute distress HENMT Head: Yes normal to inspection Ears: hearing grossly normal bilaterally Face and sinus: Yes normal facial exam Mouth: Normal oral and palatal mucosa present Throat: Yes posterior oropharynx normal Eyes General: appearance normal, both eyes and all related structures Neck Neck: Yes no lymphadenopathy and Yes supple Resp Effort & Inspection: normal respiratory effort Auscultation: clear to auscultation bilaterally Cardio Rhythm: regular rhythm Heart sounds: S1 normal heart sound present and S2 normal heart sound present GI Inspection: Yes normal to inspection Palpation (GI): Soft to palpation Percussion: Yes normal to percussion Auscultation: normal bowel sounds Coding Level of Care Code Est Pt Prev Care 40-64y(20618) Diagnoses DM type 2 (diabetes mellitus, type 2) E11.9 HTN (hypertension) I10 Hyperlipidemia E78.5 Annual physical exam Z00.00 Additional Codes ROBINSON-7 Assessment Billing - ROBINSON-7 Assessment Tool: ROBINSON-7 Assessment 43322 ([id number]) PHQ-9 - 73149 - PHQ-9 Billing: Yes ([id number]) Assessment & Plan Assessment & Plan (1) DM type 2 (diabetes mellitus, type 2): Code(s): E11.9 - Type 2 diabetes mellitus without complications Category: Medical Plan: A1c is 12.4. ADA diet increase physical activity monitoring blood glucose daily discussed with the patient. Metformin 750 twice a day will be started. Patient will follow-up in 2 weeks with his glucose readings log (2) HTN (hypertension): Code(s): I10 - Essential (primary) hypertension Category: Medical Plan: Continue olmesartan (3) Hyperlipidemia: Comment: high dose of statin for history of CVA Code(s): E78.5 - Hyperlipidemia, unspecified Category: Medical Plan: Continue statin (4) Annual physical exam: Code(s): Z00.00 - Encounter for general adult medical examination without abnormal findings Category: Medical Plan: Well-balanced diet regular for discussed with the patient he is up-to-date with colonoscopy Medications: New metformin ER 750 mg PO BID 180 tabs 1RF
--- OUTSIDE RECORDS SUMMARY | 2025-06-01 14:51 | XMS_ITS | Clinical Summary ---
Author Organization [address] [place] [address] [place] [phone] Phone Care Team Providers Care Lost And Found Clerk Name Role Phone Physician, Pcp Unknown Primary [...] this topic Insurance [employer] Care Teams Lost And Found Clerk Relationship Specialty Start Date End Date Physician, Pcp Unknown PCP - General 09/09/24
== END 2025-06-01 16:11 | disposition home or self-care (01) ==
LOC: HO.HMCC 14:03
PROVIDERS: PCP Internal Medicine; Visit Provider Internal Medicine
DX: E11.9 Type 2 diabetes mellitus without complications (principal); I10 Essential (primary) hypertension; E78.5 Hyperlipidemia, unspecified; Z00.00 Encounter for general adult medical examination without abnormal findings

== ENCOUNTER → 2025-06-01 14:02 | Outpatient (BNVA) | payer BC, SELFPAY | PROVIDERS: PCP Internal Medicine; Visit Provider Internal Medicine | DX: Z00.00 Encounter for general adult medical examination without abnormal findings (principal); E11.9 Type 2 diabetes mellitus without complications; I10 Essential (primary) hypertension; E78.5 Hyperlipidemia, unspecified; Z86.73 Personal history of transient ischemic attack (TIA), and cerebral infarction without residual deficits | CPT/HCPCS: 96127; 99499 ==

== ENCOUNTER 2025-08-03 10:00 | Outpatient (AMB) | payer BC, SELFPAY ==
--- NOTE | 2025-08-03 10:06 | MHC.PC.OV ---
Vital Signs 08/03/25 10:07 Height 5 ft 7 in Weight 275 lb BMI 43.1 BP 118/66 Blood Pressure Location Rt brachial Position Sitting Respiration 5 L Pulse 70 Pulse Source Pulse Oximeter Temp 98.2 F Temp Source Oral Pulse Oximetry (%) 99 Oxygen Delivery Method Room Air Intake Visit Reasons: Reschedule dm follow up Intake Note: Pt is here today to f/u DM Pediatric Licensed Practical Nurse Required: No Allergies No Known Allergies Allergy (Verified 08/03/25 10:07) Medication List - Last Reconciled 08/03/25 by Vanessa Fleming MD aspirin 81 mg PO DAILY atorvastatin 80 mg PO DAILY blood-glucose meter ([employer] Verio Flex Start kit) As directed lancets ([employer] Delica Plus Lancet) Test blood sugar twice a day metformin ER 750 mg PO BID olmesartan 40 mg PO DAILY OneTouch Verio test strips (blood sugar diagnostic) Test blood sugar twice a day NS Tobacco use date assessed: 08/03/25 Dental Screening Dental Screen Date: 08/03/25 Did you have a dental visit in the last 12 months?: No Did you have a dental problem in the last 6 months where you did not have access to dental care?: No Was dental information given to patient?: Patient declined HPI Reschedule dm follow up HPI Details Patient presents for the follow-up of type 2 diabetes hyperlipidemia and hypertension. He has not been monitoring his blood glucose regularly, because does not know how to use glucometer ,but has significantly changed his diet, decreasing carbohydrates intake. [facility] Medical History DM type 2 (diabetes mellitus, type 2) Morbid obesity Annual physical exam Obesity Hyperlipidemia Tendinopathy of right shoulder Watering of eye CVA (cerebral vascular accident) Surgical History H/O colonoscopy History of appendectomy Family History Father No problems noted. Mother HTN (hypertension) Social History Housing: Apartment Alcohol intake: current Alcohol intake frequency: a few times a month Patient Tobacco Use Status: Current everyday Tobacco user Tobacco use type: Cigarette Cigarettes Per Day: 12 Years Smoked: 35 Packs per year/per ci.00 e-Cigarette/Vaping Use: Never Used service: Yes Current occupational status: employed Cognitive needs: No Hearing needs: No Vision needs: No Questionnaire PHQ-9 Over the last 2 weeks, how often have you been bothered by any of the following problems? 1. Little interest or pleasure in doing things: not at all 2. Feeling down, depressed, or hopeless: not at all 3. Trouble falling or staying asleep, or sleeping too much: not at all 4. Feeling tired or having little energy: more than half the days 5. Poor appetite or overeating: more than half the days 6. Feeling bad about yourself - or that you are a failure or have let yourself or your family down: not at all 7. Trouble concentrating on things, such as reading the newspaper or watching television: not at all 8. Moving or speaking so slowly that other people could have noticed. Or the opposite - being so fidgety or restless that you have been moving around a lot more than usual: not at all 9. Thoughts that you would be better off or of hurting yourself in some way: not at all Total score: 4 Depression Screening Interpretation: Negative Depression Screening Done: Yes Source: Developed by Drs. Tr Nelson, Martha Larios, Pete Lamb and colleagues, with an educational johnathan from [employer]. Thrive Questionnaire Date Thrive assessed: 06/01/25 I am a: Patient What is your living situation today?: I have a steady place to live Within the past 12 months, did the food you bought not last and you didn't have the money to get more?: Never true Within the past 12 months, did you worry whether your food would run out before you got money to buy more?: Never true Do you have trouble paying for medicines?: No Do you have trouble getting transportation to medical appointments?: No Do you have trouble paying your heating and electricity bill?: No Do you have trouble taking care of your child, family member or friend?: No Do you have trouble with day-to-day activities such as bathing, preparing meals, shopping, managing finances, etc.?: No Are you currently unemployed and looking for a job?: No Are you interested in more education?: No Please select the resources that you would like help with: None Currently or been in a relationship where the following occur: No concerns reported THRIVE Score: 0 AUDIT C Alcohol Use Questionnaire (AUDIT-C) 1. How often do you have a drink containing alcohol?: Never 3. How often do you have six or more drinks on one occasion?: Never Total Score: 0 ROBINSON-7 AMB Questionnaire ROBINSON-7 Date ROBINSON - 7 assessed: 06/01/25 Feeling nervous, anxious, or on edge: 2 = More than half the days Not being able to stop or control worryin = Not at all Worrying too much about different things: 0 = Not at all Trouble relaxin = More than half the days Being so restless that it is hard to sit still: 0 = Not at all Becoming easily annoyed or irritable: 2 = More than half the days Feeling afraid as if something awful might happen: 0 = Not at all Total ROBINSON-7 score (0-4 normal; 5-9 mild; 10-14 moderate; 15-21 severe): 6 Source: Developed by Drs. Tr Nelson, Martha Larios, Pete Lamb and colleagues, with an educational johnathan from [employer]. Review of Systems Const All systems reviewed & are unremarkable except as noted in HPI and below ENT Reports no additional complaints Card Reports no additional complaints Resp Reports no additional complaints GI Reports no additional complaints Reports no additional complaints Physical exam (Primary Care) Vital Signs: Last Vital Signs Temp 98.2 F 08/03/25 10:07 Pulse 70 08/03/25 10:07 Resp 5 L 08/03/25 10:07 BP 118/66 08/03/25 10:07 Pulse Ox 99 08/03/25 10:07 Oxygen Delivery Method Room Air 08/03/25 10:07 BMI result Body Mass Index 43.1 Tobacco/Smoking Status: Tobacco use Status Tobacco use date assessed 08/03/25 08/03/25 10:10 Patient Tobacco Use Status Current everyday Tobacco 08/03/25 10:09 Tobacco use type Cigarette 08/03/25 10:09 e-Cigarette/Vaping Use Never Used 08/03/25 10:09 PHQ-9: PHQ-9 Score PHQ-9: Total score 4 08/03/25 10:48 Depression Screening Interpretation: Negative Thrive Assessment: Date of Thrive Assessment Date Thrive assessed 06/01/25 08/03/25 10:09 Currently or been in a relationship where the following occur: No concerns reported Const General: no acute distress Eyes General: appearance normal, both eyes and all related structures Resp Effort & Inspection: normal respiratory effort Auscultation: clear to auscultation bilaterally Cardio Rhythm: regular rhythm Heart sounds: S1 normal heart sound present and S2 normal heart sound present Extrem Other: Diabetic foot exam skin is intact monofilament and vibration sensation intact bilaterally Results AMB Hemoglobin A1c AMB Hemoglobin A1c 7.9 % Last Edit by Josefina Tatum CMA on 08/03/25 10:48 Results Reviewed Results Reviewed: Laboratory Last Values Hgb A1c (Clinic) 7.9 % (4.0-6.0) H 08/03/25 10:41 Coding Level of Care Code Est Pt Level 4 (47918) Diagnoses HTN (hypertension) I10 Hyperlipidemia E78.5 DM type 2 (diabetes mellitus, type 2) E11.9 Morbid obesity E66.01 Assessment & Plan Assessment & Plan (1) HTN (hypertension): Code(s): I10 - Essential (primary) hypertension Category: Medical Plan: Continue olmesartan (2) Hyperlipidemia: Comment: high dose of statin for history of CVA Code(s): E78.5 - Hyperlipidemia, unspecified Category: Medical Plan: Continue atorvastatin (3) DM type 2 (diabetes mellitus, type 2): Code(s): E11.9 - Type 2 diabetes mellitus without complications Category: Medical Plan: A1c is down to 7.9 from 12.3. ADA diet increase physical activity weight loss discussed with the patient. Mounjaro 2.5 mg weekly will be started. Patient was advised to start monitoring his fasting glucose daily and record the readings. He will follow-up in 3 months with a fasting labs before (4) Morbid obesity: Code(s): E66.01 - Morbid (severe) obesity due to excess calories Category: Medical Plan: Decreasing caloric intake increasing physical activity and weight loss discussed with the patient Orders: Orders AMB Hemoglobin A1c Today Z13.9 - Encounter for screening, unspecified Hemoglobin A1c 3 Months E11.9 - Type 2 diabetes mellitus without complications, E66.01 - Morbid (severe) obesity due to excess calories, E78.5 - Hyperlipidemia, unspecified, I10 - Essential (primary) hypertension Lipid Panel 3 Months E11.9 - Type 2 diabetes mellitus without complications, E66.01 - Morbid (severe) obesity due to excess calories, E78.5 - Hyperlipidemia, unspecified, I10 - Essential (primary) hypertension Comprehensive [place]. Panel Fast 3 Months E11.9 - Type 2 diabetes mellitus without complications, E66.01 - Morbid (severe) obesity due to excess calories, E78.5 - Hyperlipidemia, unspecified, I10 - Essential (primary) hypertension Complete Blood Count Auto Diff 3 Months E11.9 - Type 2 diabetes mellitus without complications, E66.01 - Morbid (severe) obesity due to excess calories, E78.5 - Hyperlipidemia, unspecified, I10 - Essential (primary) hypertension Microalbumin, Random (w Creat) 3 Months E11.9 - Type 2 diabetes mellitus without complications, E66.01 - Morbid (severe) obesity due to excess calories, E78.5 - Hyperlipidemia, unspecified, I10 - Essential (primary) hypertension Medications: New tirzepatide (Mounjaro) 2.5 mg (0.5 mL) subcut QWEEK 2 mL 3RF
[2025-08-03 10:07] VITALS: BP 118/66; PULSE 70; RESP 5; TEMP 36.8; O2SAT 99; BMI 43.1
--- OUTSIDE RECORDS SUMMARY | 2025-08-03 12:00 | XMS_ITS | Clinical Summary ---
Author Organization [address] [place] [address] [place] [phone] Phone Care Team Providers Care Cross Tie Maker Name Role Phone Physician, Pcp Unknown Primary Care Provider Keila vailable Social History Tobacco Use Types Packs/Day Years Used Date Smoking Tobacco: Never Assessed Sex and Gender Information Value Date Recorded Sex Assigned at Not on file Legal Sex Male 4:17 AM EST Gender Identity Not on file Sexual Orientation Not on file Plan of Treatment Health Maintenance Due Date Last Done Comments Colorectal Cancer Screening: Colonoscopy 1968 Hepatitis B Vaccines (1 of 3 - 19+ 3-dose series) 1987 Pneumococcal Vaccine: 50+ Years (1 of 1 - PCV) 2018 Zoster Vaccines (1 of 2) 2018 Cholesterol Screening (Lipid Panel) 09/10/2024 HIV Screening 09/10/2024 Hepatitis C Screening 09/10/2024 Social Influencers of Health Screening 09/10/2024 Depression Screening 10/05/2024 COVID-19 Vaccine (3 - 2024-2 6 season) 2025 03/05/2021, 02/01/2021 Influenza Vaccine (#1) 2025 09/10/2017 DTaP,Tdap,and Td Vaccines (2 - Td or Tdap) 03/16/2029 03/16/2019 RSV Immunization Adult Patients (1 - 1-dose 75+ series) 2043 HIB Vaccines Aged Out No longer eligi [...] patient's age to complete [place] [address] [employer] Care Teams Cross Tie Maker Relationship Specialty Start Date End Date Physician, Pcp Unknown PCP - General 09/09/24
== END 2025-08-03 16:04 | disposition home or self-care (01) ==
LOC: HO.HMCC 10:01
PROVIDERS: PCP Internal Medicine; Visit Provider Internal Medicine
DX: I10 Essential (primary) hypertension (principal); E11.69 Type 2 diabetes mellitus with other specified complication; E66.01 Morbid (severe) obesity due to excess calories; Z68.41 Body mass index [BMI] 40.0-44.9, adult; E78.5 Hyperlipidemia, unspecified

== ENCOUNTER → 2025-08-03 10:00 | Outpatient (BNVA) | payer BC, SELFPAY | PROVIDERS: PCP Internal Medicine; Visit Provider Internal Medicine | DX: I10 Essential (primary) hypertension (principal); E78.5 Hyperlipidemia, unspecified; E11.9 Type 2 diabetes mellitus without complications; E66.01 Morbid (severe) obesity due to excess calories; Z68.41 Body mass index [BMI] 40.0-44.9, adult | CPT/HCPCS: 83036; 96127 ==